=== PATIENT | male | born 1975 | race American Indian/Alaskan Native ===

== ENCOUNTER 2021-10-06 19:48 | Emergency (ER) | payer OTHER ==
[~2021-10-06] VITALS: Ht 182.9 cm; Wt 116.0 kg
[2021-10-06 20:55] VITALS: BP 152/97
[2021-10-06] MEDS ORDERED: ALBU18HF2 INH (21:31)
[2021-10-06] MEDS ORDERED: MOME13HF INH (21:32)
[2021-10-06] MEDS ORDERED: P50 MT (21:36)
== END 2021-10-06 21:38 | disposition home or self-care (01) ==
LOC: ER 19:48
DX: J45.901 Unspecified asthma with (acute) exacerbation (principal); I10 Essential (primary) hypertension
CPT/HCPCS: 99282